=== PATIENT | female | born 1950 | race Caucasian/White ===

== ENCOUNTER 2017-12-12 16:06 | Emergency (ER) | payer MEDICARE, BC ==
[~2017-12-12] VITALS: Ht 162.6 cm; Wt 72.7 kg
[2017-12-12 16:12] VITALS: Ht 162.6 cm; Wt 72.7 kg
[2017-12-12] MEDS ORDERED: ELIQUIS5 MG PO (16:14)
[2017-12-12] MEDS ORDERED: HYDROCODON-ACE1 EAC7 PO (17:58)
[2017-12-12 18:18] VITALS: BP 161/85
== END 2017-12-12 18:19 | disposition home or self-care (01) ==
LOC: D.ER 16:06
DX: S02.2XXA Fracture of nasal bones, initial encounter for closed fracture (principal); W19.XXXA Unspecified fall, initial encounter; Y93.01 Activity, walking, marching and hiking; Y92.481 Parking lot as the place of occurrence of the external cause